=== PATIENT | female | born 2000 | race Caucasian/White ===

== ENCOUNTER → 2021-08-09 | Emergency (ER) | payer OTHER ==
[~2021-08-09] VITALS: Ht 172.7 cm; Wt 63.5 kg
[~2021-08-09] MED LIST: KETO10TA2 PO
== END | disposition home or self-care (01) ==
LOC: ER 10:14
DX: S93.692A Other sprain of left foot, initial encounter (principal); X58.XXXA Exposure to other specified factors, initial encounter; Y93.01 Activity, walking, marching and hiking; Y92.838 Other recreation area as the place of occurrence of the external cause; Y99.8 Other external cause status